=== PATIENT | female | born 1940 | race American Indian/Alaskan Native ===

== ENCOUNTER 2017-01-08 09:32 | Emergency (ER) | payer MEDICARE, BC ==
[2017-01-08 09:48] VITALS: TEMP 98.2
--- NOTE | 2017-01-08 10:08 | ED PDOC ---
Arrival/HPI - General Chief Complaint: Abnormal Skin Integrity Time Seen by Provider: 01/08/17 09:52 Historian: Patient - History of Present Illness Narrative History of Present Illness (Text): 01/08/17 09:53 76 y/o female, pmh including htn and dm, nkda, c/o scalp painful lump 7 days. Last tetanus under 5 years ago. Pt. stated that she hit the top of the head accidentally on the corner of the table, no LOC, no nausea or vomiting, no dizziness, no change in vision, went to the urgent care about 5 days ago and put on the keflex and bactroban topical ointment with limited relief and here for the seconds opinions. Pt. stated that she feels completely well, no change in appetize, no fatigue or rash, no fever or chills, here to have the evaluation of the bump on the top of the head, no other medical or psychological complaints. Past Medical History - Provider Review Nursing Documentation Reviewed: Yes - Cardiac Hx Cardiac Disorders: Yes Hx Hypertension: Yes - Pulmonary Hx Respiratory Disorders: No - Neurological Hx Neurological Disorder: No - HEENT Hx HEENT Disorder: No - Renal Hx Renal Disorder: Yes Hx Renal Cancer: Yes - Endocrine/Metabolic Hx Diabetes Mellitus Type 2: Yes - Hematological/Oncological Hx Cancer: Yes - Integumentary Hx Dermatological Disorder: No - Musculoskeletal/Rheumatological Hx Musculoskeletal Disorders: No - Gastrointestinal Hx Gastrointestinal Disorders: No - Psychiatric Hx Psychophysiologic Disorder: No Hx Substance Use: No - Surgical History Other/Comment: NEPHRECTOMY R/T CA Family/Social History - Physician Review Nursing Documentation Reviewed: Yes Family/Social History: Unknown Family HX Smoking Status: Never Smoked Hx Alcohol Use: No Hx Substance Use: No Allergies/Home Meds Allergies/Adverse Reactions: Allergies No Known Allergies Allergy (Verified 01/08/17 09:36) Home Medications: Home Meds Medication Instructions Recorded Confirmed Aspirin [Aspirin Chewable] 81 mg PO DAILY 01/08/17 01/08/17 Cephalexin [Keflex] 500 mg PO Q12 01/08/17 01/08/17 Cholecalciferol (Vitamin D3) 1 cap PO DAILY 01/08/17 01/08/17 [Vitamin D3] Ergocalciferol (Vitamin D2) 1 cap PO QWK 01/08/17 01/08/17 [Vitamin D2] Exenatide [Byetta] 0.2 ml SC BID 01/08/17 01/08/17 Lisinopril [Zestril] 10 mg PO DAILY 01/08/17 01/08/17 Mupirocin Calcium [Mupirocin] 1 apful TOP TID 01/08/17 01/08/17 PARoxetine [Paxil] 10 mg PO DAILY 01/08/17 01/08/17 Pravastatin Sodium [Pravachol] 40 mg PO DAILY 01/08/17 01/08/17 Pregabalin [Lyrica] 50 mg PO TID 01/08/17 01/08/17 Tolnaftate [Tinactin] 1 apful TOP BID PRN 01/08/17 01/08/17 amLODIPine [Norvasc] 10 mg PO DAILY 01/08/17 01/08/17 metFORMIN [glucOPHAGE] 500 mg PO BID 01/08/17 01/08/17 Review of Systems - Review of Systems Constitutional: absent: Fatigue, Fevers Eyes: absent: Vision Changes ENT: absent: Hearing Changes Respiratory: absent: SOB, Cough Cardiovascular: absent: Chest Pain Gastrointestinal: absent: Abdominal Pain, Nausea, Vomiting Musculoskeletal: absent: Arthralgias, Myalgias Skin: Rash, Skin Lesions, Abscess. absent: Pruritis, Laceration, Ulcer, Cellulitis Physical Exam Vital Signs Reviewed: Yes Vital Signs Temp Pulse Resp BP Pulse Ox 01/08/17 09:39 98.2 F 80 16 136/79 96 Temperature: Afebrile Blood Pressure: Normal Pulse: Regular Respiratory Rate: Normal Appearance: Positive for: Well-Appearing, Non-Toxic, Comfortable Pain Distress: Mild Mental Status: Positive for: Alert and Oriented X 3 - Systems Exam Head: Present: Atraumatic, Normocephalic, Other (There is approx. 1.25cm diameter fluctuant abscess noted on the lt. parietal region with no cellulitis or streaking, no ulcers. ) Pupils: Present: PERRL Extroacular Muscles: Present: EOMI Conjunctiva: Present: Normal Mouth: Present: Moist Mucous Membranes Neck: Present: Normal Range of Motion Respiratory/Chest: Present: Clear to Auscultation, Good Air Exchange. No: Respiratory Distress, Accessory Muscle Use Cardiovascular: Present: Regular Rate and Rhythm, Normal S1, S2. No: Murmurs Abdomen: Present: Normal Bowel Sounds. No: Tenderness, Distention, Peritoneal Signs Back: Present: Normal Inspection Upper Extremity: Present: Normal Inspection. No: Cyanosis, Edema Lower Extremity: Present: Normal Inspection. No: Edema Neurological: Present: GCS=15, Speech Normal, Motor Func Grossly Intact, Gait Normal, Memory Normal, Other (walking with normal gait and posture. ) Skin: Present: Warm, Dry, Normal Color. No: Rashes Psychiatric: Present: Alert, Oriented x 3, Normal Insight, Normal Concentration Medical Decision Making ED Course and Treatment: 01/08/17 10:20 -clindamycin, tylenol -sensation intact, motor 5/5, wound irrigate with saline, clean with betadine, # 11 blade made 0.5cm incision wound with approx. 1cc of abscess drained, hemostasis obtained, bacitracin and gauze dressing apply, sensation intact, motor 5/5. -I will change the keflex to clindamycin for broad and MRSA coverage, discussed with Dr. Marcano and he agreed on the dispo/treatment plan. -Discharge home with clindamycin, discontinue keflex, take tylenol at home for pain as needed, keep the dressing dry and clean, follow up with your own pmd within 3 days, return to the ER in 2 days for wound check and dressing change, return to the ER for any new or worsening signs or symptoms. - Medication Orders Current Medication Orders: Clindamycin HCl (Cleocin) 300 mg PO STAT STA PRN Reason: Protocol Stop: 01/08/17 10:21 Tramadol/Acetaminophen (Ultracet 37.5/325 Mg) 1 tab PO STAT STA Stop: 01/08/17 10:21 - PA / SEARCH DIRECTOR / Resident Statement MD/DO has reviewed & agrees with the documentation as recorded. Disposition/Present on Arrival - Present on Arrival Any Indicators Present on Arrival: No History of DVT/PE: No History of Uncontrolled Diabetes: Yes Urinary Catheter: No History of Decub. Ulcer: No History Surgical Site Infection Following: None - Disposition Have Diagnosis and Disposition been Completed?: Yes Diagnosis: Abscess, scalp Disposition: HOME/ ROUTINE Disposition Time: 10:20 Patient Plan: Discharge Condition: IMPROVED Additional Instructions: Discharge home with clindamycin, discontinue keflex, take tylenol at home for pain as needed, keep the dressing dry and clean, follow up with your own pmd within 3 days, return to the ER in 2 days for wound check and dressing change, return to the ER for any new or worsening signs or symptoms. Prescriptions: Clindamycin [Cleocin] 300 mg PO QID #40 cap Referrals: [facility] at [facility] [place] [Outside] - Follow up with primary Forms: WORK NOTE
[2017-01-08] MEDS ORDERED: TraMADol/Apap 37.5/325 mg Tab PO STA (10:20)
[2017-01-08 11:19] VITALS: BP 134/75; PULSE 75; RESP 18; O2SAT 99
== END 2017-01-08 11:42 | disposition home or self-care (01) ==
LOC: MERGE 09:32 → ED 09:32
DX: L02.811 Cutaneous abscess of head [any part, except face] (principal); E11.9 Type 2 diabetes mellitus without complications; I10 Essential (primary) hypertension

== ENCOUNTER 2017-01-10 16:52 | Emergency (ER) | payer MEDICARE, BC ==
[2017-01-10 17:09] VITALS: BP 143/76; PULSE 93; RESP 18; TEMP 98.7; O2SAT 96
--- NOTE | 2017-01-10 17:26 | ED PDOC ---
Arrival/HPI - General Chief Complaint: Wound Check Time Seen by Provider: 01/10/17 17:21 - History of Present Illness Narrative History of Present Illness (Text): 01/10/17 17:24 76-year-old female in the emergency department for wound reevaluation. Patient states that approximately 2 weeks ago, she bumped her head in the basement, and since then has had a small abscess in the area. Patient states that she was initially prescribed Keflex outpatient with mild relief, and then was switched to clindamycin during her last visit a few days ago in the emergency department. Patient states that her wound has been getting much better, but she was instructed to come in for wound check. Patient denies any headaches, denies any neck or back pain, denies any fevers or chills. Past Medical History - Provider Review Nursing Documentation Reviewed: Yes - Infectious Disease Hx of Infectious Diseases: None - Cardiac Hx Cardiac Disorders: Yes Hx Hypertension: Yes - Pulmonary Hx Respiratory Disorders: No - Neurological Hx Neurological Disorder: No - HEENT Hx HEENT Disorder: No - Renal Hx Renal Disorder: Yes Hx Renal Cancer: Yes - Endocrine/Metabolic Hx Diabetes Mellitus Type 2: Yes - Hematological/Oncological Hx Cancer: Yes - Integumentary Hx Dermatological Disorder: No - Musculoskeletal/Rheumatological Hx Musculoskeletal Disorders: No - Gastrointestinal Hx Gastrointestinal Disorders: No - Psychiatric Hx Psychophysiologic Disorder: No Hx Substance Use: No - Surgical History Other/Comment: NEPHRECTOMY R/T CA Family/Social History Family/Social History: No Known Family HX Smoking Status: Never Smoked Hx Alcohol Use: No Hx Substance Use: No Allergies/Home Meds Allergies/Adverse Reactions: Allergies No Known Allergies Allergy (Verified 01/10/17 17:09) Home Medications: Home Meds Medication Instructions Recorded Confirmed Aspirin [Aspirin Chewable] 81 mg PO DAILY 01/08/17 01/08/17 Cephalexin [Keflex] 500 mg PO Q12 01/08/17 01/08/17 Cholecalciferol (Vitamin D3) 1 cap PO DAILY 01/08/17 01/08/17 [Vitamin D3] Ergocalciferol (Vitamin D2) 1 cap PO QWK 01/08/17 01/08/17 [Vitamin D2] Exenatide [Byetta] 0.2 ml SC BID 01/08/17 01/08/17 Lisinopril [Zestril] 40 mg PO DAILY 01/08/17 01/08/17 Mupirocin Calcium [Mupirocin] 1 apful TOP TID 01/08/17 01/08/17 PARoxetine [Paxil] 10 mg PO DAILY 01/08/17 01/08/17 Pravastatin Sodium [Pravachol] 40 mg PO DAILY 01/08/17 01/08/17 Pregabalin [Lyrica] 50 mg PO TID 01/08/17 01/08/17 Tolnaftate [Tinactin] 1 apful TOP BID PRN 01/08/17 01/08/17 amLODIPine [Norvasc] 10 mg PO DAILY 01/08/17 01/08/17 metFORMIN [glucOPHAGE] 500 mg PO BID 01/08/17 01/08/17 Physical Exam - Physical Exam Narrative Physical Exam (Text): 01/10/17 17:44 - Review of Systems Constitutional: Normal. absent: Fatigue, Weight Change, Fevers Eyes: Normal ENT: denies sore throat, denies tristhmus Respiratory: Normal. absent: SOB, Cough, Sputum Cardiovascular: absent: Chest Pain, Palpitations, Syncope Gastrointestinal: Normal. absent: Abdominal Pain, Diarrhea, Nausea, Vomiting Genitourinary: Normal. absent: Dysuria, Frequency, Hematuria, vaginal bleeding Musculoskeletal: Normal. absent: Arthralgias, Back Pain, Neck Pain Skin: Wound check. no rashes, no erythema Neurological: absent: Focal Weakness Endocrine: Normal Hemo/Lymphatic: Normal Psychiatric: No suicidal or homicidal ideations Physical exam Patient appears age appropriate in no distress, speaking full sentences without difficulty - Systems Exam Head: Present: Normocephalic Pupils: Present: PERRL Extroacular Muscles: Present: EOMI Conjunctiva: Present: Normal Mouth: Present: Moist Mucous Membranes Neck: Present: Normal Range of Motion. No: MIDLINE TENDERNESS, Paraspinal Tenderness Respiratory/Chest: Present: Clear to Auscultation, Good Air Exchange. No: Respiratory Distress, Accessory Muscle Use, Tachypneic Cardiovascular: Present: Regular Rate and Rhythm, Normal S1, S2, Peripheal Pulses Present. No: Murmurs Abdomen: Present: Normal Bowel Sounds. No: Tenderness, Distention, Peritoneal Signs, Rebound, Guarding Back: Present: Normal Inspection. No: Midline Tenderness, Paraspinal Tenderness Upper Extremity: Present: Normal Inspection. No: Cyanosis, Edema Lower Extremity: Present: Normal Inspection. No: Edema Neurological: Present: GCS=15, Speech Normal, cranial nerves II through XII fully intact with no cerebellar abnormality, neurosensory fully intact. No focal neurological deficits. Skin: Present: Scalp with a less than 1 cm well-healing abscess, no erythema in the surrounding region, no tenderness, scab present. Warm, Dry, Normal Color. No: Rashes Lymphatic: Present: OX3, NI, NC Psychiatric: Present: Alert, Oriented x 3, Normal Insight, Normal Concentration Vital Signs Reviewed: Yes Vital Signs Temp Pulse Resp BP Pulse Ox 01/10/17 17:05 98.7 F 93 H 18 143/76 96 Temperature: Afebrile Blood Pressure: Normal Pulse: Regular Respiratory Rate: Normal Appearance: Positive for: Well-Appearing Pain Distress: None Mental Status: Positive for: Alert and Oriented X 3 Medical Decision Making ED Course and Treatment: 01/10/17 17:49 Patient in the emergency department for wound check. Patient had abscess appears to be well-healing with no tenderness, no erythema. Patient states that her symptoms have started to significantly improve after being switched to clindamycin. Started to follow-up for further reevaluation outpatient. Pt states she understands to return to the ER right away for new or worsening symptoms or for inability to f/u with PMD or specialist as instructed. Patient states that she fully agrees with and understands discharge instructions. States that she agrees with the plan and disposition. Verbalized and repeated discharge instructions and plan. I have given the patient opportunity to ask any additional questions. Disposition/Present on Arrival - Present on Arrival Any Indicators Present on Arrival: No History of DVT/PE: No History of Uncontrolled Diabetes: Yes Urinary Catheter: No History of Decub. Ulcer: No History Surgical Site Infection Following: None - Disposition Have Diagnosis and Disposition been Completed?: Yes Diagnosis: Visit for wound check Disposition: HOME/ ROUTINE Disposition Time: 17:22 Patient Plan: Discharge Condition: GOOD Discharge Instructions (ExitCare): Abscess (ED), Abscess Follow-up (ED) Additional Instructions: Please continue your antibiotics as prescribed. Keep wound clean and dry. Apply antibiotics ointment twice a day. Return to the emergency Department right away for drainage, fevers or chills, pain, headaches, or any other concerns. Please follow up with outpatient physician in the next 48 hours for reevaluation. Referrals: Dez Singletary MD [Staff Provider] - Follow up with primary [facility] at [facility] [place] [place] [Outside] - Follow up with primary
== END 2017-01-10 17:53 | disposition home or self-care (01) ==
LOC: ED 16:52
DX: Z51.89 Encounter for other specified aftercare (principal)